=== PATIENT | male | born 1950 | race Caucasian/White ===

== ENCOUNTER → 2016-10-09 | Day surgery (SDC) | payer BC ==
[~2016-10-09] MED LIST: ASPI1TAB69 PO; DOCU1CAP39 PO; LACTATED RINGER'S 1,000 ML BAG IV ONE; METO50TA PO; POLY17S PO; PROPOFOL 200 MG/20 ML AMP IV ONE; XARE20TA PO; ZETI10TA5 PO
--- NOTE | 2016-10-09 10:33 | GIPROC ---
[facility] [address] [facility], [address] COLONOSCOPY PROCEDURE REPORT EXAM DATE: 10/09/2016 PATIENT NAME: Josue Pedro MR #: [id number] BIRTHDATE: 1950 ENDOSCOPIST: Rubne Mancuso MD ORDER #: [id number] HAND KISS SETTER: Gypsy Macedo RN STATUS: outpatient INDICATIONS: The patient is a 66 yr old male here for a colonoscopy due to patient's immediate family history of colon cancer PROCEDURE PERFORMED: Colonoscopy with biopsy MEDICATIONS: None and Per Anesthesia. PREP QUALITY: The [place] Bowel Prep Score was Right colon 2, Mid colon 3, and Left colon 3. Total = 8. PREP TYPE:GoLytely ESTIMATED BLOOD LOSS: None CONSENT: The patient understands the risks and benefits of the procedure and understands that these risks include, but are not limited to: sedation, allergic reaction, infection, perforation and/or bleeding. Alternative means of evaluation and treatment include, among others: physical exam, x-rays, and/or surgical intervention. The patient elects to proceed with this endoscopic procedure. medical equipment was checked for proper function. Hand hygiene and appropriate measures for infection prevention was taken. After the risks, benefits and alternatives of the procedure were thoroughly explained, Informed consent was verified, confirmed and timeout was successfully executed by the treatment team. A digital exam revealed external hemorrhoids The EC-[id number] ([id number]) endoscope was introduced through the anus and advanced to the cecum, which was identified by both the appendix and ileocecal valve. The instrument was then slowly withdrawn as the colon was fully examined. COLON FINDINGS: A polypoid shaped sessile polyp ranging between 3-5mm in size was found in the ascending colon. A biopsy was performed using cold forceps. A polypoid shaped adenomatous polyp ranging between 3-7mm in size was found in the sigmoid colon. A biopsy was performed using cold forceps. Mild diverticulosis was noted in the sigmoid colon. Retroflexed views revealed internal hemorrhoids and Retroflexed views revealed medium internal hemorrhoids The scope was then completely withdrawn from the patient and the procedure terminated. PROCEDURE WITHDRAWAL TIME:7minutes ADVERSE EVENTS: There were no complications. IMPRESSIONS: 1. A sessile polyp ranging between 3-5mm in size was found in the ascending colon; biopsy was performed using cold forceps 2. An adenomatous polyp ranging between 3-7mm in size was found in the sigmoid colon; biopsy was performed using cold forceps 3. Mild diverticulosis was noted in the sigmoid colon 4. Retroflexed views revealed internal hemorrhoids 5. Retroflexed views revealed medium internal hemorrhoids 6. Revealed external hemorrhoids RECOMMENDATIONS: 1. Await biopsy results. Biopsy results will not be ready for 7-10 days. If you don't hear from us in two weeks, call our office for results. 2. Benefiber 2 tsp daily 3. Benefiber 2 tsp daily 4. Yearly hemoccult 5. High fiber diet 6. No seeds, nuts and popcorn in diet RECALL: Return 3 years Colonoscopy, pending biopsy results Ruben Mancuso MD eSigned: Ruben Mancuso MD 10/09/2016 10:33 AM cc: Airam Bentley M.D and [facility] [place] PATIENT NAME: WillisJosue MR#: [id number]
== END | disposition home or self-care (01) ==
LOC: ESDC 08:44
PROVIDERS: ATTEND Internal Medicine Gastroenterology
DX: Z12.11 Encounter for screening for malignant neoplasm of colon (principal); Z80.0 Family history of malignant neoplasm of digestive organs; D12.2 Benign neoplasm of ascending colon; D12.5 Benign neoplasm of sigmoid colon; K57.90 Diverticulosis of intestine, part unspecified, without perforation or abscess without bleeding
CPT/HCPCS: 00810; 45380; 88305; J7120